=== PATIENT | male | born 1940 | race Caucasian/White ===

== ENCOUNTER 2019-09-12 05:31 | Day surgery (SDC) | payer OTHER ==
[2019-09-10 09:18] VITALS: BMI 24.9
[2019-09-12] MEDS ORDERED: PROPOFOL 200 MG/20 ML VIAL ONE (14:43)
--- NOTE | 2019-09-12 15:39 | ECHO ---
DATE OF SERVICE: 09/12/19 PREPROCEDURE DIAGNOSIS: Atrial fibrillation. POSTPROCEDURE DIAGNOSIS: Atrial fibrillation, patent left atrial appendage. The Anesthesiology department provided with sedation for the patient. Please see their notes for det ails. The patient was brought to the outpatient area for evaluation of his left atrial appendage to see if it had been ligated during surgery as his records were purged as he had surgery in the year 1999. After adequate sedation was achieved by the anesthesiology department, we advanced the probe into the mouth and into the esophagus without issues. Multiplanar views were obtained. Left ventricle is normal size, normal wall thickness. Systolic function is normal. Estimated EF at 5 0-55%. Left atrium is dilated. Left atrial appendage is small but patent. No mass or thrombus are seen. Reduced velocities. Right atrium is mildly dilated. The right ventricle is normal size with normal systolic function. Aortic valve is sclerotic but opens well. Three cusps. No stenosis. Mild aortic regurgitation. Mitral valve is structurally normal. There is mild to moderate MR. Tricuspid valve is structurally normal. There is mild TR. Pulmonary valve is structurally normal. There is no stenosis or regurgitation. Thoracic aorta has grade II atherosclerotic disease. CONCLUSIONS: 1. Normal LV systolic function, EF at 50-55%. 2. Left atrial enlargement with patent left atrial appendage with reduced velocities but no mass or thrombus. 3. Aortic valve sclerosis with mild AI. 4. Mild to moderate MR. 5. Mild TR.
== END 2019-09-12 09:12 | disposition home or self-care (01) ==
LOC: CCL 05:31
PROVIDERS: ATTEND Internal Medicine Cardiovascular Disease
PROC: B24BZZ4 Ultrasonography of Heart with Aorta, Transesophageal (ICD-10-PCS; principal; 2019-09-12)
DX: I48.91 Unspecified atrial fibrillation (principal); Q21.2 Atrioventricular septal defect; I08.3 Combined rheumatic disorders of mitral, aortic and tricuspid valves; Z79.01 Long term (current) use of anticoagulants; Z79.84 Long term (current) use of oral hypoglycemic drugs; Z79.899 Other long term (current) drug therapy
CPT/HCPCS: 36416; 93312; J2704

== ENCOUNTER 2020-02-24 07:47 | Outpatient (CLI) | payer OTHER ==
[2020-02-24 09:09] LABS: Anion Gap 14 mmol/L (10-20); BUN (Urea Nitrogen) 19 mg/dL (8.4-25.7); Calc. Creatinine Clearance 0 mL/min (70-130); Calcium 10.3 mg/dL (7.8-10.44); Carbon Dioxide 25 mmol/L (23-31); Chloride 105 mmol/L (98-107); Estimated GFR-MDRD 41; Glucose 211 mg/dL (83-110); Potassium 5.3 mmol/L (3.5-5.1); Sodium 139 mmol/L (136-145)
[2020-02-24] MEDS ORDERED: Iopamidol 370 76% 100 ML VIAL ONE (09:48)
--- NOTE | 2020-02-24 10:17 | CT ---
CT ANGIOGRAM THORAX WITH IV CONTRAST AND 3-D RECONSTRUCTIONS CLINICAL INDICATION: Chronic atrial fibrillation and shortness of breath. Watchman device placed. Evaluate for left atrial appendage thrombus. COMPARISON: None FINDINGS: Pulmonary arteries: Not opacified on this examination as this study was tailored for evaluation of th e left atrium. Aorta: Vascular calcifications are seen in the thoracic aorta. The thoracic aorta is normal in calibe r. Normal arrangement of the great vessels at the aortic arch is present mild atherosclerotic plaque and calcifications present. Lungs: Minimal dependent linear densities are seen posterior lungs primarily in the limited visualize d lower lobes which may be related to mild volume loss. The lungs are incompletely imaged greater involving the right hemithorax as this study was again tailored for evaluation of the atrial appendag e. Mediastinum: Extensive vascular calcifications are seen involving the coronary arteries. 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 The left atrium and left ventricle are opacified. There is a watchman device seen in the left atrial appendage, but there is enhancement of the left atrial append age without occlusion of the left atrial appendage. No thrombus is appreciated in the left atrium. A curvilinear hypoechoic area is seen along the inner aspect of the watchman device likely due to mil d thrombus. There is an increased number of mediastinal lymph nodes with a pretracheal lymph node demonstrating m ild enlargement with short axis dimension measuring 1.5 cm. Mildly prominent prevascular space lymph node is also present measuring 1.4 cm. Soft tissue density is also seen in the subcarinal regio n related to enlarged subcarinal lymph node adjacent decompressed esophagus. This enlarged lymph node in short axis dimensions measures 1.9 cm. Mildly prominent epicardial lymph node is seen on the right. Thyroid gland: Not imaged. Osseous structures: Degenerative changes are seen in the visualized thoracic spine. Chest wall: No abnormality visualized. IMPRESSION: 1. Limited examination of the chest as this study was tailored for evaluation of the left atrial appe ndage. 2. Watchman device noted in place, but there is persistent contrast enhancement in the left atrial ap pendage, and the left atrial appendage is not occluded. Minimal thrombus is seen along the inner aspect of the watchman device, but no filling defect is seen in the left atrium to suggest thrombus i n the left atrium. 3. Prominent vascular calcifications in the coronary arteries with evidence of prior CABG. 4. Nonspecific mediastinal lymphadenopathy.
== END 2020-02-24 07:48 | disposition home or self-care (01) ==
LOC: CT 07:47
PROVIDERS: ATTEND Internal Medicine Cardiovascular Disease
DX: I48.91 Unspecified atrial fibrillation (principal); R06.02 Shortness of breath; Z08 Encounter for follow-up examination after completed treatment for malignant neoplasm; D53.9 Nutritional anemia, unspecified; Z85.79 Personal history of other malignant neoplasms of lymphoid, hematopoietic and related tissues
CPT/HCPCS: 36415; 71275; 80048; 83615; 85025; Q9967